=== PATIENT | female | born 1970 | race Caucasian/White ===

== ENCOUNTER → 2017-12-10 13:46 | Outpatient (POV) | payer BC, SELFPAY | PROVIDERS: Family Provider Internal Medicine Adolescent Medicine; PCP Internal Medicine Adolescent Medicine; Visit Provider Dermatology | DX: Z00.00 Encounter for general adult medical examination without abnormal findings (principal) ==

== ENCOUNTER → 2018-05-14 15:39 | Outpatient (CLI) | payer BC, SELFPAY ==
--- NOTE | 2018-05-14 15:42 | MM_ITS ---
MM Dig screening mamm BI w/CAD ORDERING PHYSICIAN : Driss Buck MD PATIENT AGE: 48 years GENDER: Female COMPARISON: March 24, 2016 right mammogram & ultrasound... March, , June 2014, July 2011 bilateral mammograms also utilized INDICATION: ITS.REASON: Routine Screening Mammogram no hormones. No new complaints. Previous lumpectomy for benign fibroadenoma/ benign excisional biopsy right breast April 2016 Family history. Mother with breast cancer age 50 TECHNIQUE: Standard CC and MLO images were obtained. The axillary cc view both breast included R2 CAD reviewed. FINDINGS: Moderate breast density.. RIGHT BREAST.:Stable post surgical changes from lumpectomy with residual mild distortion towards upper outer quadrant right breast There are a few small punctate, loosely grouped calcifications right breast seen towards deep of the lumpectomy site,. These most likely/, appear to be benign calcifications, possibly post biopsy type calcifications. Given the recent biopsy and changes I believe follow-up 5-6 months would be most appropriate, & suggested to confirm relative stability of these most likely, benign developing calcifications,. The Asymmetric areas of fibroglandular tissue in the axillary tail right breast back on Mar 2016 mammogram studies are less evident today than in 2016-but may also benefit from short interval follow-up as well. LEFT BREAST:. 2 Small stable ovoid nodular densities axillary quadrant and tail left breast are again noted. Present and fairly stable since since 2011.-Most likely intramammary nodes Intramammary lymph nodes or. Follow-up in one year adequate on left IMPRESSION: RIGHT BREAST: 1. Postsurgical changes right breast from prior lumpectomy for benign fibroadenoma. 2. There are a few small most likely benign-appearing calcifications deep margin of the biopsy site.. Possibly postbiopsy calcifications.\ Would suggest 5-6 month follow-up to further evaluate these most likely benign calcifications LEFT BREAST: No significant new findings. Follow-up in one year BI-RADS Category: 3 Probably Benign Finding Short Term Follow-up RECOMMENDED FOLLOW-UP: 6M 6 MONTH FOLLOW-UP Right breast 6 months (A letter has been sent to the patient regarding results of the study.)
== END ==
PROVIDERS: PCP Internal Medicine Adolescent Medicine; Visit Provider Nurse Practitioner Obstetrics & Gynecology
DX: Z12.31 Encounter for screening mammogram for malignant neoplasm of breast (principal)
CPT/HCPCS: 77067

== ENCOUNTER → 2018-06-09 14:34 | Outpatient (CLI) | payer BC, SELFPAY ==
--- NOTE | 2018-06-09 14:35 | MM_ITS ---
MM Dig mamm DX unilat RT CAD INDICATION: Follow-up calcifications ORDERING PHYSICIAN: Driss Buck MD PATIENT AGE: 48 years COMPARISON: None TECHNIQUE: Mag views right breast FINDINGS: Cluster of calcifications noted in the upper outer right breast which have a probably benign appearance being mostly coarse with a few small punctate calcifications.. Surgical clips are present anterior to the calcifications IMPRESSION: Probably benign calcifications BI-RADS Category: 3 Probably Benign Finding Short Term Follow-up RECOMMENDED FOLLOW-UP: 6M - 6 MONTH FOLLOW-UP (A letter has been sent to the patient regarding results of the study.)
== END ==
PROVIDERS: PCP Internal Medicine Adolescent Medicine; Visit Provider Nurse Practitioner Obstetrics & Gynecology
DX: R92.8 Other abnormal and inconclusive findings on diagnostic imaging of breast (principal)
CPT/HCPCS: 77065

== ENCOUNTER → 2018-12-09 13:28 | Outpatient (CLI) | payer BC, SELFPAY ==
--- NOTE | 2018-12-09 13:33 | MM_ITS ---
MM Dig mamm DX unilat RT CAD INDICATION: 6 month follow-up ORDERING PHYSICIAN: Driss Buck MD PATIENT AGE: 48 years COMPARISON: 06/09/2018, 05/14/2018, 05/01/2017 TECHNIQUE: Standard images performed along with spot compression mag views FINDINGS: Postsurgical changes of the right breast with surgical clips in the upper outer aspect with some scarring at this area. There remains a small cluster of calcifications in the superior aspect of the right breast laterally. These appear benign and are unchanged. No new abnormalities are evident. IMPRESSION: No change postsurgical changes and benign-appearing calcifications in the upper outer aspect of the right breast. No evidence of malignancy. Suggest reason screening mammogram in May 2019 of both breasts BI-RADS Category: 2 Benign Finding(s) RECOMMENDED FOLLOW-UP: 6M - 6 MONTH FOLLOW-UP (A letter has been sent to the patient regarding results of the study.)
== END ==
PROVIDERS: PCP Internal Medicine Adolescent Medicine; Visit Provider Nurse Practitioner Obstetrics & Gynecology
DX: R92.8 Other abnormal and inconclusive findings on diagnostic imaging of breast (principal)
CPT/HCPCS: 77065

== ENCOUNTER → 2018-12-20 12:39 | Outpatient (CLI) | payer BC, SELFPAY ==
--- NOTE | 2018-12-20 | XR_ITS ---
XR hip RT 2-3V w/pelvis HISTORY: Pain ORDERING PHYSICIAN: Samm Silva MD PATIENT AGE: 48 years COMPARISON: None FINDINGS: No fracture or dislocation is evident. No significant degenerative change. No lytic or blastic change. Unremarkable soft tissues IMPRESSION: Negative hip
--- NOTE | 2018-12-20 | XR_ITS ---
XR knee RT 3V HISTORY: Pain ITS.REASON: ARTHRITIS ORDERING PHYSICIAN: Samm Silva MD PATIENT AGE: 48 years COMPARISON: None FINDINGS: Minimal osteoarthritic changes are present in the medial compartment and patellofemoral joint. No fracture or dislocation. No lytic or blastic change. IMPRESSION: Mild osteoarthritis
--- NOTE | 2018-12-20 | XR_ITS ---
XR chest 2V HISTORY: Arthritis ORDERING PHYSICIAN: Samm Silva MD PATIENT AGE: 48 years COMPARISON: None FINDINGS: The cardiomediastinal silhouette and pulmonary vascularity are within normal limits. The lungs are clear without infiltrates, suspicious nodules, or pleural effusions. Calcified node is present in the left hilum No acute bony abnormalities. IMPRESSION: Negative chest, no acute finding
--- NOTE | 2018-12-20 | XR_ITS ---
XR knee LT 3V HISTORY: Pain ITS.REASON: ARTHRITIS INVOLVING MULTIPLE SITES ORDERING PHYSICIAN: Samm Silva MD PATIENT AGE: 48 years COMPARISON: None FINDINGS: No fracture or dislocation. No lytic or blastic change. Normal mineralization. No significant arthritic changes evident. No other significant findings IMPRESSION: Negative Knee
--- NOTE | 2018-12-20 | XR_ITS ---
XR hip LT 2-3V w/pelvis HISTORY: Pain ORDERING PHYSICIAN: Samm Silva MD PATIENT AGE: 48 years COMPARISON: None FINDINGS: No fracture or dislocation is evident. No significant degenerative change. No lytic or blastic change. Unremarkable soft tissues IMPRESSION: Negative hip
== END ==
PROVIDERS: PCP Internal Medicine Adolescent Medicine; Visit Provider Internal Medicine Adolescent Medicine
DX: M12.9 Arthropathy, unspecified (principal); R05 Cough
CPT/HCPCS: 71046; 73502; 73562

== ENCOUNTER → 2019-06-16 14:09 | Outpatient (CLI) | payer BC, SELFPAY ==
--- NOTE | 2019-06-16 14:10 | MM_ITS ---
PROCEDURE: MM DIG MAMM BI DX W/CAD CLINICAL INDICATION: SCREENING LT BREAST, 6 MTH F/U RT BREAST There is a history of breast cancer patient's mother diagnosed at age 50. There has been previous biopsy right breast for benign disease. Patient has no current complaints. COMPARISON: [facility] MM Dig screening mamm BI w/CAD from 05/14/2018 DXRT MM Dig mamm DX unilat RT CAD from 06/09/2018 DIG MAMM-DX UNI-RT from 12/09/2018 TECHNIQUE: Standard CC and MLO images were obtained. R2 CAD reviewed. FINDINGS: Scattered fibroglandular densities are seen throughout both breasts. Again noted are the multiple surgical clips just above the nipple right breast. A couple of benign-appearing microcalcifications are seen just posterior to the surgical clips which were seen previously and they are stable. There is a stable benign-appearing small nodular density outer quadrant left breast. There is no suspicious lesion and no suspicious microcalcifications. IMPRESSION: Fibrofatty parenchyma with no suspicious lesions seen BI-RAD Category: 2 Benign Finding(s) FOLLOW-UP: 1YR 1 Year Follow-up (A letter has been sent to the patient regarding results of the study.) Dictated by: Dr. Kevin Munoz MD 06/23/2019 08:[address] Kevin Munoz MD in [place] 06/23/2019 08:36
== END ==
PROVIDERS: PCP Internal Medicine Adolescent Medicine; Visit Provider Nurse Practitioner Obstetrics & Gynecology
DX: R92.8 Other abnormal and inconclusive findings on diagnostic imaging of breast (principal)
CPT/HCPCS: 77066

== ENCOUNTER → 2020-06-19 15:53 | Outpatient (CLI) | payer BC, SELFPAY ==
--- NOTE | 2020-06-19 15:53 | MM_ITS ---
PROCEDURE: MM DIG SCREENING MAMM BI W/CAD Digital Breast Tomosynthesis Included CLINICAL INDICATION: screening xmg There is a history of breast cancer in the patient's mother diagnosed after menopause. There has been a previous biopsy right breast for benign disease. COMPARISON: MG [facility] MM Dig screening mamm BI w/CAD from 05/14/2018 MG DXRT MM Dig mamm DX unilat RT CAD from 06/09/2018 MG DIG MAMM-DX UNI-RT from 12/09/2018 MG MM DIG MAMM BI DX W/CAD from 06/16/2019 TECHNIQUE: Standard CC and MLO images and 3D Tomosynthesis was obtained. R2 CAD reviewed. FINDINGS: Scattered diffuse fibroglandular densities are seen throughout both breast. There are multiple surgical clips with minimal post biopsy scarring just deep to and superior to the nipple right breast. Or suspicious lesion in either breast and no suspicious microcalcifications. IMPRESSION: Fibrofatty parenchyma with no suspicious lesions seen BI-RAD Category: 2 Benign Finding(s) FOLLOW-UP: 1YR 1 Year Follow-up (A letter has been sent to the patient regarding results of the study.) Dictated by: Dr. Kevin Munoz MD 06/21/2020 13:51 Dr. Kevin Munoz MD in [place] 06/21/2020 13:51
== END ==
PROVIDERS: PCP Internal Medicine Adolescent Medicine; Visit Provider Nurse Practitioner Obstetrics & Gynecology
DX: Z12.31 Encounter for screening mammogram for malignant neoplasm of breast (principal)
CPT/HCPCS: 77063; 77067

== ENCOUNTER → 2021-07-09 16:17 | Outpatient (CLI) | payer BC, SELFPAY ==
--- NOTE | 2021-07-09 16:17 | MM_ITS ---
PROCEDURE INFORMATION: Exam: MG Bilateral Screening 3D Mammography Exam date and time: 07/09/2021 4:17 PM Age: 51 years old Clinical indication: Encounter for screening mammogram for malignant neoplasm of breast; Additional info: Screening xmg. Family history of breast carcinoma. TECHNIQUE: Imaging protocol: Bilateral screening tomosynthesis and 2D mammography including computer-aided detection (CAD) when performed. COMPARISON: 1. MG MM DIG SCREENING MAMM BI W/CAD 06/19/2020 3:57 PM 2. MG MM DIG MAMM BI DX W/CAD 06/16/2019 2:27 PM 3. MG DIG MAMM-DX UNI-RT 12/09/2018 1:52 PM FINDINGS: MAMMOGRAPHY: Breast composition: There are scattered areas of fibroglandular density. Mass: No suspicious masses. Architectural distortion: No suspicious distortion. Relatively stable postsurgical changes in the right upper outer quadrant. Calcifications: No suspicious calcifications. Asymmetric density: None. Skin thickening: None. Axillary adenopathy: None. IMPRESSION: No mammographic evidence of malignancy. Annual screening is recommended unless otherwise clinically indicated. ASSESSMENT: BI-RADS Category 2: Benign
== END ==
PROVIDERS: PCP Internal Medicine Adolescent Medicine; Visit Provider Nurse Practitioner Obstetrics & Gynecology
DX: Z12.31 Encounter for screening mammogram for malignant neoplasm of breast (principal)
CPT/HCPCS: 77063; 77067

== ENCOUNTER → 2021-09-17 14:58 | Outpatient (POV) | payer BC, SELFPAY | PROVIDERS: Visit Provider Dermatology | DX: Z00.00 Encounter for general adult medical examination without abnormal findings (principal) ==

== ENCOUNTER → 2022-01-23 08:55 | Outpatient (CLI) | payer BC, SELFPAY ==
--- NOTE | 2022-01-23 08:58 | XR_ITS ---
FINAL REPORT CLINICAL HISTORY: medial knee pain FINDINGS: RIGHT KNEE 4 views of the right knee were obtained. There is no acute fracture or dislocation. There is mild degenerative change which is worse at the patellofemoral joint. Visualized joint spaces are normally aligned. A small joint effusion is seen. IMPRESSION: Mild degenerative change. Small joint effusion with no acute bony abnormality. Reviewed, Interpreted and Dictated by Khanh Schaffer III, MD Transcribed by Tawnya Leal Authenticated and [facility]
== END ==
PROVIDERS: PCP Internal Medicine Adolescent Medicine; Visit Provider Orthopaedic Surgery
DX: M25.561 Pain in right knee (principal)
CPT/HCPCS: 73564

== ENCOUNTER → 2022-01-29 13:26 | Outpatient (CLI) | payer BC, SELFPAY ==
--- NOTE | 2022-01-29 13:26 | MR_ITS ---
PROCEDURE INFORMATION: Exam: MR Right Lower Extremity Joint Without Contrast, Knee Exam date and time: 01/29/2022 2:08 PM Age: 51 years old Clinical indication: Patient HX: Right knee pain, no known injury TECHNIQUE: Imaging protocol: Magnetic resonance imaging of the Right lower extremity joint without contrast. Exam focused on the knee. COMPARISON: 1. CR XR KNEE RT 4V 01/23/2022 8:59 AM 2. CR (KNEE AP, KNEE, KNEE AP) 12/20/2018 1:05 PM FINDINGS: Bones and cartilage: There is mild lateral subluxation of the patella. There is grade IV (out of IV) full-thickness cartilage loss involving a significant portion of the lateral patellofemoral joint, which may be due to severe primary osteoarthritis, patellar maltracking, or CPPD arthropathy. There is grade III (out of IV) high-grade partial-thickness cartilage loss involving the medial compartment. No significant cartilage damage involves the lateral compartment. There is no acute fracture or dislocation. No aggressive bone lesions are present. Joint spaces: A moderate joint effusion involves the knee. Periarticular cysts: A small popliteal cyst is present. Medial meniscus: A complex tear involves the posterior horn of the medial meniscus. Abnormal signal extends to both the superior and inferior meniscal surfaces. Lateral meniscus: The lateral meniscus shows no evidence of tear. Anterior cruciate ligament: The anterior cruciate ligament is intact. Posterior cruciate ligament: The posterior cruciate ligament is intact. Medial capsule and supporting structures: The medial collateral ligament is intact. Lateral capsule and supporting structures: The lateral collateral ligament complex is intact. Extensor mechanism of knee: The extensor mechanism is intact without significant tendinosis. Muscles: Unremarkable. Soft tissues: There is a moderate amount of edema in the subcutaneous fat. IMPRESSION: 1. Complex tear of the medial meniscus posterior horn. 2. Significant grade IV (out of IV) full-thickness cartilage loss involving the lateral patellofemoral joint, which may be due to severe primary osteoarthritis, patellar maltracking, or CPPD arthropathy. 3. Grade III (out of IV) high-grade partial-thickness cartilage loss involving the medial joint compartment, consistent with moderate primary osteoarthritis.
== END ==
PROVIDERS: PCP Internal Medicine Adolescent Medicine; Visit Provider Orthopaedic Surgery
DX: M25.561 Pain in right knee (principal); G89.29 Other chronic pain
CPT/HCPCS: 73721

== ENCOUNTER → 2022-03-11 15:29 | Outpatient (CLI) | payer BC, SELFPAY ==
--- NOTE | 2022-03-11 15:47 | ECG_ITS ---
APPROVED REPORT Exam: Resting ECG HR:66 bpm ECG Measurements Heart Rate 66 AXES MS 155 P 57 QRSd 85 QRS 113 QT 400 T 37 QTc 413 Conclusion SINUS RHYTHM POSSIBLE RIGHT VENTRICULAR HYPERTROPHY [SOME/ALL OF: PROMINENT R IN V1, LATE TRANSITION, RAD, MESFIN, SSS] ABNORMAL ECG UNCONFIRMED REPORT Electronically signed by : Samm Silva MD 03/11/2022 21:06:42
[2022-03-11 15:50] LABS: Microscopic, Urine URINE MICROSCOPIC (MICROSCOPIC)
--- NOTE | 2022-03-11 16:09 | XR_ITS ---
FINAL REPORT CLINICAL HISTORY: pre op; SOB COMPARISON: 12/20/2018 FINDINGS: TWO-VIEW CHEST The heart size is normal. The mediastinum is normal. There is small left pleural effusion or pleural thickening. There is no pneumothorax. IMPRESSION: Small left pleural effusion versus pleural thickening. Reviewed, Interpreted and Dictated by Khanh Schaffer III, MD Transcribed by Zoey Odom Authenticated and . [facility]
[2022-03-11 16:51] LABS: Basophils # 0.1 K/mm3 (0-0.2); Basophils % 1.4 % (0.1-2.0); Eosinophils # 0.1 K/mm3 (0.0-0.4); Eosinophils % 1.9 % (0.1-12.0); Hematocrit 41.8 % (37.0-47.0); Hemoglobin 13.2 g/dL (12.2-16.2); Lymphocytes # 2.7 K/mm3 (0.7-4.5); Lymphocytes % 36.5 % (10-50); Mean Corpuscular HGB Conc 31.5 g/dL (31.8-35.4); Mean Corpuscular Hemoglobin 28.6 pg (27.0-31.2); Mean Corpuscular Volume 90.7 fl (81-99); Mean Platelet Volume 8.8 fl (7.4-10.4); Monocytes # 0.4 K/mm3 (0.1-1.0); Monocytes % 5.8 % (1.7-9.3); Neutrophils % 54.3 % (37.0-80.0); Platelet Count 283 K/mm3 (142-424); Red Blood Count 4.61 M/mm3 (4.20-5.40); Red Cell Distribution Width 14.6 % (11.5-17.5); White Blood Count 7.4 K/mm3 (4.8-10.8)
[2022-03-11 17:27] LABS: Alanine Aminotransferase 21 U/L (12-78); Albumin Level 3.9 g/dl (3.5-5.0); Albumin/Globulin Ratio 1.4 (1.1-1.8); Alkaline Phosphatase 132 U/L (38-126); Anion Gap 8.1 mEq/L (5-15); Aspartate Amino Transferase 26 U/L (14-36); Blood Urea Nitrogen 28 mg/dl (7-17); Calcium 9.5 mg/dl (8.4-10.2); Carbon Dioxide 30 mmol/L (22.0-30.0); Chloride 105 mmol/L (98-107); Estimated Glomerular Filt Rate 47 ml/min (>60); GFR (African American) 57 ML/MIN (>60); Globulin 2.8 g/dL (1.3-3.2); Glucose 95 mg/dl (74-100); Potassium 4.1 mmoL/L (3.5-5.1); Sodium 139 mmol/L (136-145); Total Protein,Serum 6.7 g/dl (6.3-8.2)
[2022-03-11 17:36] LABS: Bilirubin,Total < 0.1 mg/dl (0.2-1.3)
[2022-03-11 18:06] LABS: Appearance,Urine CLEAR (Clear); Bilirubin,Urine Negative (Negative); Blood, Urine Negative (Negative); Color,Urine YELLOW (Yellow); Glucose,Urine (UA) Negative (Negative); Ketones,Urine Negative (Negative); Leukocyte Esterase,Urine Negative (Negative); Nitrate,Urine Negative (Negative); Protein,Urine Negative (Negative); Specific Gravity, Urine >= 1.030 (1.005-1.030); Urobilinogen,Urine 0.2 EU/dl (0.2)
== END ==
PROVIDERS: PCP Internal Medicine Adolescent Medicine; Visit Provider Orthopaedic Surgery
DX: Z01.818 Encounter for other preprocedural examination (principal); M25.561 Pain in right knee
CPT/HCPCS: 36415; 71046; 80053; 81001; 85025; 93005

== ENCOUNTER → 2022-03-15 11:08 | Outpatient (CLI) | payer BC, SELFPAY | PROVIDERS: PCP Internal Medicine Adolescent Medicine; Visit Provider Orthopaedic Surgery | DX: Z01.812 Encounter for preprocedural laboratory examination (principal); Z20.822 Contact with and (suspected) exposure to COVID-19; M25.561 Pain in right knee | CPT/HCPCS: C9803; U0003; U0005 ==

== ENCOUNTER 2022-03-17 07:26 | Day surgery (SDC) | payer BC, SELFPAY ==
[2022-03-13 15:02] VITALS: BMI 35.7
[2022-03-17] VITALS (13 sets, daily range): BP systolic 129–152; BP diastolic 67–94; PULSE 59–78; RESP 16–96; TEMP 36.1–43; O2SAT 92–97
--- NOTE | 2022-03-17 08:43 | P.PN_ITS ---
[facility] Medical History Anxiety Depression History of cyst of breast Hypertension Hyperthyroidism Migraine Surgical History History of colonoscopy History of laparoscopy History of wisdom tooth extraction Family History Other No significant family history Social History Smoking Status: Never smoker alcohol intake: never substance use type: denies use current occupational status: employed Travel in the last 8 weeks: None household members: family housing: house caffeine: Yes [facility] Anesthesia Checklist Patient Identification Patient Identification: Arm Band and Verbal (Name & ) Structural Data Admitted From: Home Planned Operative Procedure/s: l knee arthro Consent for Planned Operative Procedure(s) Verified: Yes Verified Documents: Surgical Consent Additional verifications Anesthesia Reactions: No Hx Blood Transfusions: No Blood Transfusion Reaction: No Airway Assessment C-Spine Mobility Assessed: Yes TMJ Mobility Assessed: Yes Dentition: Good Dentition Neurological Assessment Level of Consciousness: Awake, Alert and Appropriate Psychosocial Assessment Concerns Regarding Surgery: nausea Anesthesia Plan Anesthesia Risk discussed: Yes Anesthesia Plan: Verified ASA Class: II Anesthesia Type: General
--- NOTE | 2022-03-17 11:22 | P.PNANES_ITS ---
[facility] Anesthesia Record Part I Anesthesia Record I Intake, IV Amount: 1,200 Estimated blood loss (mL): 5 Urine output (mL): 0 Blood Products used (#): none Blood Pressure: 150/86 SaO2: 92 Pulse Rate: 67 Respiratory Rate: 16 Temperature: 97.1 F Patient is:: Drowsy and Stable Stable to PACU at:: 11:15
--- NOTE | 2022-03-17 11:50 | EXP.OP.NOTE ---
Date of procedure: 03/17/22 Pre-op Diagnosis:: 1. Medial meniscus tear, right knee 2. Osteoarthritis, right knee Post-op Diagnosis:: 1. Degenerative tear, Medial meniscus, right knee 2. Osteoarthritis, right knee 3. Pathological medial plica, right knee Procedure performed:: 1. Examination of right knee under anesthesia 2. Partial medial meniscectomy, right knee 3. Chondroplasty, right knee 4. Resection of medial plica, right knee Surgeon:: Jeancarlos Denney MD Consulting Project Director(s):: Katherine Monson PA-C TEAROOM HOST:: Willam Macias Anesthesia: LMA Estimated blood loss (mL): 2 Clinical Note:: The patient is a 52-year-old female with chronic right knee pain which is unresponsive to conservative management and evidence of a medial meniscal tear and significant arthritic changes on imaging. Clinically her symptoms are consistent with the above diagnosis. Resection of the torn medial meniscus, chondroplasty and debridement is indicated to relieve the pain and improve function of the knee. Please refer to orthopedic office note for full details. Operative findings:: Examination of the RIGHT knee under anesthesia, showed a stable knee joint. ?There is a small amount of knee joint effusion.? Knee range of motion is from 0-130? of flexion.? Arthroscopic findings include diffuse grade 2-4 degenerative changes over the patellofemoral compartment and grade 2- 3 changes over the medial femoral condyle and the medial tibial plateau. ?The lateral compartment is well preserved.? The medial meniscus had a degenerative tear involving the posterior horn. The lateral meniscus was noted to be intact.? The medial plica was inflamed and thickened.? The anterior cruciate ligament and posterior cruciate ligaments were intact. ?Mild synovitis was noted. Operative note:: On the day of the procedure the patient and her were met in the preoperative area and positively identified. A physical examination was performed and documented. The limb was marked and initialed by me. I have again discussed the diagnosis, management options including both nonsurgical and surgical. I have discussed the proposed surgical procedure, risks and benefits and alternatives in detail. The complications discussed include but are not limited to infection, injury to nerves and blood vessels, injury to the ligaments and tendons, knee stiffness, arthrofibrosis, incomplete relief, incomplete functional recovery, DVT, PE, CRPS, complications related to anesthesia including heart attack, stroke and even . I have also discussed about the likely need for further surgery in future. I told her that there were no guarantees with surgery; she could be no better or even worse. We also discussed the postoperative recovery and rehabilitation that might be needed. I believe the patient to be well informed with regard to the proposed surgery. I told her that it would take few months for full recovery of the knee after surgery. ?She expressed a full understanding and wished to proceed with the planned surgery. Patient understood the risks, agreed to proceed with surgery and no guarantees or assurances were given or implied. Patient was brought to the operating room and placed supine on the operating table. All the bony prominences were appropriately padded. A general anesthesia was administered by the milking worker. A well-padded tourniquet cuff was placed over the right upper thigh. Examination of the right knee under anesthesia was performed. A small amount of knee effusion was noted. Knee range of motion was 0-1 30 degrees of flexion. Knee joint is noted to be ligamentously stable. The right knee was then prepped and draped in the usual sterile fashion. A preprocedure timeout was performed as per protocol. Administration of prophylactic IV antibiotics was confirmed with the anesthetic team. The arthroscopic portals were marked on the skin. The limb was exsanguinated with Esmarch bandage, and the tourniquet was inflated to 300 mmHg- see
--- NOTE | 2022-03-17 15:08 | EXP.ANES.II ---
[facility] Anesthesia Record Part II Anesthesia Record Part II Discharge Time: 12:05 Destination: Surgical Day Care (OP Surgery) PACU nurse assessment reviewed?: Yes Patient Condition:: Good Anesthesia Complications:: None Swallowing reflex intact?: Yes Cyanosis?: No Blood Pressure: 136/67 Pulse Rate: 62 Temperature: 97 F Mental Status: Alert & Oriented Pain level:: 0 Nausea and/or vomitting:: Nauseated Intake, IV Amount: 0
== END 2022-03-17 12:40 | disposition home or self-care (01) ==
PROVIDERS: PCP Internal Medicine Adolescent Medicine; Visit Provider Orthopaedic Surgery
PROC: (CPT 29870; principal; 2022-03-17 09:00)
DX: M23.231 Derangement of other medial meniscus due to old tear or injury, right knee (principal); M17.11 Unilateral primary osteoarthritis, right knee; M67.52 Plica syndrome, left knee; M25.561 Pain in right knee; G89.29 Other chronic pain; I10 Essential (primary) hypertension; G43.909 Migraine, unspecified, not intractable, without status migrainosus; Z79.899 Other long term (current) drug therapy
CPT/HCPCS: 29881; 96374; J2405

== ENCOUNTER 2022-04-28 09:36 | Emergency (ER) | payer BC, SELFPAY ==
[2022-04-28 09:37] VITALS: BP 134/68; PULSE 89; RESP 21; TEMP 37.3; O2SAT 97; BMI 36.6
--- NOTE | 2022-04-28 10:33 | EXP.UTC ---
Discharge Plan Disposition Patient Disposition: Home, Self-Care Condition: Good Prescriptions Prescriptions: New azithromycin [Zithromax Z-Glenn] 250 mg tablet See Rx Instructions .ROUTE .COMPLEX 5 Days Qty: 6 0RF Rx Instructions: For 250 mg dose pack: take 500 mg today (day 1), then 250 mg for 4 days (days 2-5) benzonatate 100 mg capsule 100 mg PO TID PRN (Reason: cough) Qty: 30 0RF prednisone 10 mg tablet 10 mg PO BID 5 Days Qty: 10 0RF No Action hydrochlorothiazide 25 mg tablet 25 mg PO DAILY carvedilol 25 mg tablet 25 mg PO DAILY celecoxib 200 mg capsule 200 mg PO DAILY levothyroxine 175 mcg tablet 175 mcg PO POSTTR Label Comments: TAKE ONE TABLET BY MOUTH EVERY DAY ON an EMPTY stomach vilazodone 20 mg tablet 20 mg PO DAILY hydrocodone-acetaminophen 5-325 mg Tablet 1 tab PO Q6HP PRN (Reason: moderate to severe pain) Qty: 20 0RF Referrals Follow up/Referrals: Samm Silva MD [Primary Care Provider] - See instructions Activity Restrictions/Add. Instructions Additional Instructions/Restrictions: *Monitor Temp, Over the counter Motrin or Tylenol as directed/as needed Tylenol every 4 hours and Motrin every 6 hours (as long as your family doctor has told you that you can take it) for fever or pain. and straight to ER if unable to lower temp less than 101.0 after medication given *Warm salt water gargles may help to soothe the throat *Throat Lozenges? *Warm fluids like tea with honey may help to soothe the throat? *Sleep elevated *Humidifier/Vaporizer Take medication as prescribed Follow up IMMEDIATELY for new or worsening symptoms or no Noticeable improvement over the next 48-72 hours. 911 for difficulty breathing or swallowing Clinical Impressions Clinical Impression: Otitis media Instructions Patient Instructions: Middle Ear Infection, Cough Discharge ED Provider: Lisa Joseph [facility] General Stated complaint: Persistant cough, Covid+ 04/15 Mode of Arrival: Ambulatory Source of Information: Patient Limitations: No Limitations Time Seen by Provider: 04/28/22 10:34 Description of Symptoms (Recalled from Triage Doc. by RN): cough and congestion HEENT Symptoms (Recalled from RN notes): Yes Resp Symptoms (Recalled from RN notes): Yes Skin Symptoms (Recalled from RN notes): No MS Symptoms (Recalled from RN notes): No Functional Status (Recalled from RN notes): n/a History of Present Illness Provider Complaint: Patient states that she had COVID on 04/15 States that she was feeling better from that and then started having hoarsness, cough, sore scratchy throat and pain and pressure in her left ear States that feels like it is stopped up and ringing at times but cough has not improved States that she isnt coughing anything up but is aggrivating her and keeping her upp Related Data Home Medications Medication Instructions Recorded Confirmed carvedilol 25 mg tablet 25 mg PO DAILY bp 06/04/20 04/02/22 celecoxib 200 mg capsule 200 mg PO DAILY Pain 06/04/20 04/02/22 hydrochlorothiazide 25 mg tablet 25 mg PO DAILY bp 06/04/20 04/02/22 levothyroxine 175 mcg tablet 175 mcg PO POSTTR thyroid 07/12/21 04/02/22 vilazodone 20 mg tablet 20 mg PO DAILY Anxiety 03/13/22 04/02/22 Previous Rx's Medication Instructions Recorded hydrocodone 5 mg-acetaminophen 325 1 tab PO Q6HP PRN moderate to 03/17/22 mg tablet severe pain #20 tabs azithromycin 250 mg tablet See Rx Instructions PO .COMPLEX 5 04/28/22 (Zithromax Z-Glenn) days #6 tabs benzonatate 100 mg capsule 100 mg PO TID PRN cough #30 caps 04/28/22 prednisone 10 mg tablet 10 mg PO BID 5 days #10 tabs 04/28/22 Allergies Allergy/AdvReac Type Severity Reaction Status Date / Time Penicillins [PENICILLINS] Allergy Unknown I-HIVES Verified 04/02/22 09:43 Worker's Comp Is this a Worker's Comp case?: No [facility] Medical History (Reviewed 04/02/22 @ 09:44 by Manuel
[2022-04-28 11:00] VITALS: BP 134/86; PULSE 89; RESP 21; TEMP 37.6; O2SAT 97
== END 2022-04-28 11:01 | disposition home or self-care (01) ==
PROVIDERS: Emergency Provider Nurse Practitioner; PCP Internal Medicine Adolescent Medicine
DX: U07.1 COVID-19 (principal); J02.9 Acute pharyngitis, unspecified; R05.9 Cough, unspecified; H92.02 Otalgia, left ear; I10 Essential (primary) hypertension; E03.9 Hypothyroidism, unspecified; H93.19 Tinnitus, unspecified ear; G43.909 Migraine, unspecified, not intractable, without status migrainosus; F32.A Depression, unspecified; F41.9 Anxiety disorder, unspecified; Z79.52 Long term (current) use of systemic steroids; Z79.899 Other long term (current) drug therapy; Z88.0 Allergy status to penicillin
CPT/HCPCS: 99213; G0463

== ENCOUNTER → 2022-07-24 07:48 | Outpatient (CLI) | payer BC, SELFPAY ==
--- NOTE | 2022-07-24 07:49 | MM_ITS ---
PROCEDURE INFORMATION: Exam: MG Bilateral Screening 3D Mammography Exam date and time: 07/24/2022 7:57 AM Age: 52 years old Clinical indication: Screening. History of benign right excisional biopsy. Her mother had breast cancer at age 50. TECHNIQUE: Imaging protocol: Bilateral Screening tomosynthesis and 2D mammography including computer-aided detection (CAD) when performed. COMPARISON: 1. MG MM DIG SCREENING MAMM BI W/CAD 07/09/2021 4:31 PM 2. MG MM DIG SCREENING MAMM BI W/CAD 06/19/2020 3:57 PM 3. MG MM DIG MAMM BI DX W/CAD 06/16/2019 2:27 PM 4. MG DIG MAMM-DX UNI-RT 12/09/2018 1:52 PM FINDINGS: MAMMOGRAPHY: Breast composition: There are scattered areas of fibroglandular density. Mass: No suspicious mass. Architectural distortion: Stable post surgical clips in changes in the right upper outer quadrant. Calcifications: No suspicious calcifications. Asymmetric density: None. Skin thickening: None. Axillary adenopathy: None. IMPRESSION: No mammographic evidence of malignancy. Annual screening is recommended unless otherwise clinically indicated. ASSESSMENT: BI-RADS Category 2: Benign
== END ==
PROVIDERS: PCP Internal Medicine Adolescent Medicine; Visit Provider Nurse Practitioner Obstetrics & Gynecology
DX: Z12.31 Encounter for screening mammogram for malignant neoplasm of breast (principal)
CPT/HCPCS: 77063; 77067

== ENCOUNTER 2023-06-15 15:35 | Emergency (ER) | payer BC, SELFPAY ==
[2023-06-15 16:00] VITALS: BP 153/86; PULSE 107; RESP 18; TEMP 38.2; O2SAT 97; BMI 34.1
--- NOTE | 2023-06-15 16:17 | EXP.UTC ---
Discharge Plan Disposition Patient Disposition: Home, Self-Care Condition: Good Prescriptions Prescriptions: New promethazine-DM 6.25-15 mg/5 mL Syrup 5 ml PO Q6H PRN (Reason: Cough) Qty: 240 0RF oseltamivir [Tamiflu] 75 mg capsule 75 mg PO BID Qty: 10 0RF ondansetron 4 mg Tablet,Disintegrating 4 mg PO Q8H PRN (Reason: Nausea) Qty: 12 0RF No Action hydrochlorothiazide 25 mg tablet 25 mg PO DAILY carvedilol 25 mg tablet 25 mg PO DAILY bupropion HCl 300 mg tablet extended release 24 hr 300 mg PO DAILY levothyroxine 175 mcg tablet 175 mcg PO POSTTR Patient Comments: TAKE ONE TABLET BY MOUTH EVERY DAY ON an EMPTY stomach Referrals Follow up/Referrals: Samm Silva MD [Primary Care Provider] - See instructions Activity Restrictions/Add. Instructions Additional Instructions/Restrictions: Drink plenty of fluids. Take tylenol or ibuprofen for pain or fever. Take the medications as directed. Follow up with your regular doctor. GO TO THE ER FOR ANY WORSENING SYMPTOMS Clinical Impressions Clinical Impression: Acute viral syndrome, Exposure to influenza Stand Alone Forms Stand Alone Forms: Work/School Release Instructions Patient Instructions: DI for Influenza -- Adult, Oseltamivir Discharge ED Provider: Allan Leslie [facility] General Stated complaint: cough nausea flu exposure Time Seen by Provider: 06/15/23 16:17 History of Present Illness Provider Complaint: She states that since yesterday she has had fever, chills, body aches, cough, chest congestion, and nausea. Her daughter that lives with her tested positive for influenza A yesterday. She denies any shortness of breath. Related Data Home Medications Medication Instructions Recorded Confirmed carvedilol 25 mg tablet 25 mg PO DAILY bp 06/04/20 06/15/23 hydrochlorothiazide 25 mg tablet 25 mg PO DAILY bp 06/04/20 06/15/23 levothyroxine 175 mcg tablet 175 mcg PO POSTTR thyroid 07/12/21 06/15/23 bupropion HCl 300 mg 24 hr tablet, 300 mg PO DAILY 08/06/22 06/15/23 extended release Previous Rx's Medication Instructions Recorded ondansetron 4 mg disintegrating 4 mg PO Q8H PRN Nausea #12 tabs 06/15/23 tablet oseltamivir 75 mg capsule (Tamiflu) 75 mg PO BID #10 caps 06/15/23 promethazine-DM 6.25 mg-15 mg/5 mL 5 ml PO Q6H PRN Cough #240 mL 06/15/23 oral syrup Allergies Allergy/AdvReac Type Severity Reaction Status Date / Time Penicillins [PENICILLINS] Allergy Unknown I-HIVES Verified 06/15/23 16:27 [facility] Disclaimer: The information contained in this section may have been updated after the patient was seen, as this information can be updated by other users. Medical History Anxiety Depression History of cyst of breast Hypertension Hyperthyroidism Migraine Torn meniscus Surgical History History of colonoscopy History of laparoscopy History of wisdom tooth extraction Family History Other No significant family history Social History Smoking Status: Never smoker alcohol intake: never substance use type: denies use current occupational status: employed Travel in the last 8 weeks: None household members: family housing: house caffeine: Yes ROS Obtained: Yes All systems reviewed & no additional complaints except as documented Constitutional Constitutional: Reports chills and Reports fever(s) Eyes Eyes: Denies eye discharge ENT Ears, Nose, Mouth, and Throat: Reports as per HPI Cardiovascular Cardiovascular: Denies chest pain Respiratory Respiratory: Denies chest congestion and Reports cough Gastrointestinal Gastrointestingal: Reports nausea; Denies abdominal pain, constipation, cramping, diarrhea or vomiting Musculoskeletal
[2023-06-15 16:25] LABS: UTC Influenza A Antigen Negative (Negative)
[2023-06-15 16:26] LABS: UTC Influenza B Antigen Negative (Negative)
[2023-06-15 17:01] VITALS: BP 153/86; PULSE 107; RESP 18; TEMP 38.2; O2SAT 97
== END 2023-06-15 17:01 | disposition home or self-care (01) ==
PROVIDERS: Emergency Provider Nurse Practitioner Family; PCP Internal Medicine Adolescent Medicine
DX: R05.9 Cough, unspecified (principal); R11.0 Nausea; R50.9 Fever, unspecified; R09.89 Other specified symptoms and signs involving the circulatory and respiratory systems; I10 Essential (primary) hypertension; E78.5 Hyperlipidemia, unspecified; Z20.828 Contact with and (suspected) exposure to other viral communicable diseases
CPT/HCPCS: 87635; 87804; 99212; 99214; G0463

== ENCOUNTER 2023-07-14 09:03 | Outpatient (CLI) | payer BC, SELFPAY ==
--- NOTE | 2023-07-14 09:10 | XR_ITS ---
FINAL REPORT TECHNIQUE: Left hip 3 views CLINICAL HISTORY: LEFT HIP PAIN COMPARISON: None FINDINGS: LEFT HIP: No evidence of acute fracture or dislocation is seen. There is mild degenerative change identified. IMPRESSION: Mild degenerative change without evidence of acute bony abnormality. Reviewed, Interpreted and Dictated by Khanh Schaffer III, MD Transcribed by Zuly Campa Authenticated and [facility]
== END 2023-07-14 23:59 ==
LOC: RAD 09:04
PROVIDERS: PCP Internal Medicine Adolescent Medicine; Visit Provider Nurse Practitioner Family
DX: M25.552 Pain in left hip (principal)
CPT/HCPCS: 73502

== ENCOUNTER 2023-08-03 15:12 | Outpatient (CLI) | payer BC, SELFPAY ==
--- NOTE | 2023-08-03 15:12 | MM_ITS ---
PROCEDURE INFORMATION: Exam: MG Bilateral Screening 3D Mammography Exam date and time: 08/03/2023 3:10 PM Age: 53 years old Clinical indication: Screening examination; Positive family history of breast cancer: Mother. History of benign right breast excision TECHNIQUE: Imaging protocol: Bilateral Screening tomosynthesis and 2D mammography including computer-aided detection (CAD) when performed. COMPARISON: 1. MG MM DIG SCREENING MAMM BI W/CAD 07/24/2022 7:57 AM 2. MG MM DIG SCREENING MAMM BI W/CAD 07/09/2021 4:31 PM FINDINGS: MAMMOGRAPHY: Breast composition: There are scattered areas of fibroglandular density. Mass: None. Architectural distortion: No new or suspicious distortion Calcifications: No suspicious calcifications. Asymmetric density: None. Skin thickening: None. Axillary adenopathy: None. IMPRESSION: No mammographic evidence of malignancy. Annual screening is recommended unless otherwise clinically indicated. ASSESSMENT: BI-RADS Category 1: Negative
== END 2023-08-03 23:59 ==
LOC: RAD 15:12
PROVIDERS: PCP Internal Medicine Adolescent Medicine; Visit Provider Nurse Practitioner Obstetrics & Gynecology
DX: Z12.31 Encounter for screening mammogram for malignant neoplasm of breast (principal)
CPT/HCPCS: 77063; 77067

== ENCOUNTER 2024-08-23 15:44 | Outpatient (CLI) | payer BC, SELFPAY ==
--- NOTE | 2024-08-23 15:45 | MM_ITS ---
PROCEDURE INFORMATION: Exam: MG Bilateral Screening 3D Mammography Exam date and time: 08/23/2024 3:48 PM Age: 54 years old Clinical indication: Screening mammogram TECHNIQUE: Imaging protocol: Bilateral Screening tomosynthesis and 2D mammography including computer-aided detection (CAD) when performed. COMPARISON: 1. MG MM DIG SCREENING MAMM BI W/CAD 08/03/2023 3:10 PM 2. MG MM DIG SCREENING MAMM BI W/CAD 07/24/2022 7:57 AM 3. MG MM DIG SCREENING MAMM BI W/CAD 07/09/2021 4:31 PM 4. MG MM DIG SCREENING MAMM BI W/CAD 06/19/2020 3:57 PM FINDINGS: MAMMOGRAPHY: Breast composition: There are scattered areas of fibroglandular density. Mass: None. Architectural distortion: No new or suspicious architectural distortion. Calcifications: No new or suspicious calcifications are present Asymmetric density: No new or suspicious asymmetric density is present Skin thickening: None. Axillary adenopathy: None. IMPRESSION: No mammographic evidence of malignancy. Recommend annual screening mammography unless otherwise clinically indicated. ASSESSMENT: BI-RADS category 1: Negative.
== END 2024-08-23 23:59 | disposition home or self-care (01) ==
LOC: RAD 15:45
PROVIDERS: PCP Internal Medicine Adolescent Medicine; Visit Provider Nurse Practitioner Obstetrics & Gynecology
DX: Z12.31 Encounter for screening mammogram for malignant neoplasm of breast (principal)
CPT/HCPCS: 77063; 77067

== ENCOUNTER 2025-02-14 08:55 | Outpatient (CLI) | payer BC, SELFPAY ==
--- OUTSIDE RECORDS SUMMARY | 2024-12-13 05:15 | XMS_ITS ---
Author Organization [facility] Address [address] [place], [place] [address] Care Team Providers Care Delicatessen Slicer Name Role Phone Samm Silva Primary Care Provider [phone] Meryl Luu Unavailable [phone] REASON FOR VISIT Labs and F/U Encounters Encounter Location Date Provider Diagnosis [facility] [address] [place], [place] [address] 12/13/2024 Meryl Luu Plan Of Treatment No Information Progress Notes * Amada DIALLO LDOB: 8 (54 yo F)Acc No.[id number]:12/13/2024 Progress Notes Patient: Amada LUCIO Provider: ENEIDA Delgado :1970 A ge:54 Y S ex:Female Date:12/13/2024 Address:[address], [place], [id number] Pcp:Samm Silva Subjective: * Chief Complaints: * 1 . Labs and F/U. * Medical History: Objective: * Vitals: Assessment: Plan: * Treatment: * * Electronic signature of Penny Luu APRN on 02/14/2025 at 08:58 AM EDT Sign off status: Pending * Provider: ENEIDA Delgado Date: 0 12/13/2024 Generated for Printi ng/[place]/eTransmitting on: 0 02/14/2025 08:58 AM EDT
--- OUTSIDE RECORDS SUMMARY | 2025-02-06 05:30 | XMS_ITS ---
Author Organization [facility] Address [address] [place], [place] [address] Care Team Providers Care Dry Press Operator Helper Name Role Phone Samm Silva Primary Care Provider Meryl Luu Unavailable [phone] REASON FOR VISIT med check Encounters Encounter Location Date Provider Diagnosis [facility] [address] [place], [place] [address] 02/06/2025 Meryl Luu Plan Of Treatment No Information Progress Notes * Amada DIALLO LDOB: 8 (54 yo F)Acc No.[id number]:02/06/2025 Progress Notes Patient: Amada LUCIO Provider: ENEIDA Delgado :1970 A ge:54 Y S ex:Female Date:02/06/2025 Address:[address], [place], [id number] Pcp:Samm Silva Subjective: * Chief Complaints: * 1 . Med check. * Medical History: Objective: * Vitals: Assessment: Plan: * Treatment: * * Electronic signature of Penny Luu APRN on 02/14/2025 at 08:58 AM EDT Sign off status: Pending * Provider: ENEIDA Delgado Date: 0 02/06/2025 Generated for Lyle brewer/[place]/eTransmitting on: 0 02/14/2025 08:58 AM EDT
--- OUTSIDE RECORDS SUMMARY | 2025-02-14 08:58 | XMS_ITS | Clinical Summary ---
Author Organization Healthcare Address [address] [place] [address] Care Team Providers Care Insurance Claim Approver Name Role Phone Samm Silva MD Primary Care Provider [phone] Family History Medical History Relation Name Comments Asthma Father Breast cancer Mother Hypertension Mother Thyroid disease Other Relation Name Status Comments Father Mother Other Social History Tobacco Use Types Packs/Day Years Used Date Smoking Tobacco: Never Alcohol Use Standard Drinks/Week Comments Yes 0 (1 standard drink = 0.6 oz pur e alcohol) Comments Unknown Sex and Gender Information Value Date Recorded Sex Assigned at Not on file Legal Sex Female 8:07 PM EDT Gender Identity Not on file Sexual Orientation Not on file Last Filed Vital Signs Vital Sign Reading Time Taken Comments Blood Pressure - - Pulse - - Temperature - - Respiratory Rate - - Oxygen Saturation - - Inhaled Oxygen Concentration - - Weight 81.8 kg (180 lb 6.4 oz) 02/18/2013 9:18 A M EDT Height 165.1 cm (5' 5 ) 08/27/2012 8:46 AM EST Body Mass Index 30.02 08/27/2012 8:46 AM EST Plan of Treatment Not on file Care Teams Insurance Claim Approver Relationship Specialty Start Date End Date Samm Silva MD [address] [place] [address] PCP - General 11/16/20
--- OUTSIDE RECORDS SUMMARY | 2025-02-14 08:58 | XMS_ITS | Patient Health Record ---
Author Organization [facility] Address [address] [place] [address] Care Team Providers Care Open Hearth Stockyard Supervisor Name Role Phone Samm Silva Primary Care Provider Meryl Luu Unavailable [phone] Migration, Provider Unavailable Unavailable Allergies Allergen (clinical drug ingredient) Drug/Non Drug Allergy documented on EMR Reaction Allergy Type Onset Date Status DRIXORAL (uncoded) Unknown Allergy A ctive PCN (uncoded) Unknown Allergy Active Results Component Value Reference Range Notes TSH W/REFLEX TO FT4 (59219) Reviewed date:06/13/2024 08:17:08 AM Interpretation: Performing Lab:[facility] [place] SystemsOespAS[address] [place] Notes/Report: NON-FASTING; NON-FASTING; NON-FASTING; NON-FASTING; NON-FAST NON-FASTING; NON-FASTING; NON-FASTING; NON-FASTING; NON-FAST TSH W/REFLEX TO FT4 0.08 0.40-4.50 mIU/L T4, FREE 1.8 0.8-1.8 ng/dL VITAMIN B12 (927) Reviewed date:06/13/2024 08:17:07 AM Interpretation: Performing Lab:[facility] SystemsDcvoRS[address] [place] Notes/Report: NON-FASTING; NON-FASTING; NON-FASTING; NON-FASTING; NON-FAST VITAMIN B12 097 146-8720 pg/mL CBC (INCLUDES DIFF/PLT) (639 9) Reviewed date:06/13/2024 08:17:07 AM Interpretation: Performing Lab:[facility] [id number], [facility]wzjUT[address] [place] Notes/Report: NON-FASTING; NON-FASTING; NON-FASTING; NON-FASTING; NON-FAST WHITE BLOOD CELL COUNT 5.1 3.8-10.8 Thousand/ uL RED BLOOD CELL COUNT 4.87 3.80-5.10 Million/uL HEMOGLOBIN 13.5 11.7-15.5 g/dL HEMATOCRIT 41.5 35.0-45.0 % MCV 85.2 80.0-100.0 fL MCH 27.7 27.0-33.0 pg MCHC 32.5 32.0-36.0 g/dL For adults, a slight decrease in the calculated MCHC value (in the range of 30 to 32 g/dL) is most likely not clinically significant; however, it should be interpreted with caution in correlation with other red cell parameters and the patient's clinical condition. RDW 13.5 11.0-15.0 % PLATELET COUNT 222 140-400 Thousand/uL MPV 11.5 7.5-12.5 fL ABSOLUTE NEUTROPHILS 2555 5521-5525 cells/uL ABSOLUTE LYMPHOCYTES 8538 364-4492 cells/uL ABSOLUTE MONOCYTES 413 200-950 cells/uL ABSOLUTE EOSINOPHILS 148 15-500 cells/uL ABSOLUTE BASOPHILS 41 0-200 cells/uL NEUTROPHILS 50.1 LYMPHOCYTES 38.1 MONOCYTES 8.1 EOSINOPHILS 2.9 BASOPHILS 0.8 COMPREHENSIVE METABOLIC PANE (21901) Reviewed date:06/13/2024 08:17:07 AM Interpretation: Performing Lab:[facility] [id number] [employer] [facility], [facility]FmimOC[address] [place] Notes/Report: NON-FASTING; NON-FASTING; NON-FASTING; NON-FASTING; NON-FAST GLUCOSE 87 65-99 mg/dL Fasting reference interval UREA NITROGEN (BUN) 18 7-25 mg/dL CREATININE 1.10 0.50-1.03 mg/dL EGFR 59 > OR = 60 mL/min/1.73m2 BUN/CREATININE RATIO 16 6-22 (calc) SODIUM 141 135-146 mmol/L POTASSIUM 4.0 3.5-5.3 mmol/L CHLORIDE 105 98-110 mmol/L CARBON DIOXIDE 28 20-32 mmol/L CALCIUM 9.3 8.6-10.4 mg/dL PROTEIN, TOTAL 6.7 6.1-8.1 g/dL ALBUMIN 4.1 3.6-5.1 g/dL GLOBULIN 2.6 1.9-3.7 g/dL (calc) ALBUMIN/GLOBULIN RATIO 1.6 1.0-2.5 (calc) BILIRUBIN, TOTAL 0.4 0.2-1.2 mg/dL ALKALINE PHOSPHATASE 113 37-153 U/L AST 17 10-35 U/L ALT 18 6-29 U/L LIPID PANEL, STANDARD (7600) Reviewed date:06/13/2024 08:17:07 AM Interpretation: Performing Lab:[facility] [address], [facility]fgyWU[address] [place] Foster Notes/Report: NON-FASTING; NON-FASTING; NON-FASTING; NON-FASTING; NON-FAST CHOLESTEROL, TOTAL 198 <200 mg/dL HDL CHOLESTEROL 69 > OR = 50 mg/dL TRIGLYCERIDES 85 <150 mg/dL LDL-CHOLESTEROL 111 Reference range: <100 Desirable range <100 mg/dL for primary prevention; <70 mg/dL for patients with CHD or diabetic patients with > or = 2 CHD risk factors. LDL-C is now calculated using the Edvin-Joseph calculation, which is a validated novel method providing better accuracy than the Friedewald equation in the estimation of LDL-C. Edvin SS et al. CLAUDINE. 2013;310(19): 1414-3735 (http://education.[employer]/faq/SQB164) CHOL/HDLC RATIO 2.9 <5.0 (calc) NON HDL CHOLESTEROL 129 <130 mg/dL (calc) For patients with diabetes plus 1 major ASCVD risk factor, treating to a non-HDL-C goal of <100 mg/dL (LDL-C of <70 mg/dL) is considered a therapeutic option. Medications Medication SIG (Take, Route, Frequency, Duration) Notes Start Date End Date Status buPROPion HCl ER (XL) 150 MG 1 tab(s) or ally every 24 hours; Duration: 90 days Active Carvedilol 25 MG 1 tab(s) orally 2 times a day; Duration: 90 days Active hydroCHLOROthiazide 25 mg TAKE ONE TABLE T BY MOUTH EVERY DAY; Duration: 90 Active Citalopram Hydrobromide 10 mg TAKE ONE T ABLET BY MOUTH EVERY DAY; Duration: 90 Active Levothyroxine Sodium 150 mcg TAKE ONE TA BLET BY MOUTH EVERY DAY; Duration: 30 Active Problems Problem Type SNOMED Code ICD Code Onset Dates Problem Status W/U Status Risk Notes Problem Primary insomnia (6853081) Primary insomnia (F51.01) Active confirmed Problem Chronic serous otitis media (81829464) Chronic serous otitis media, left ear (H65.22) Active confirmed Problem Vitamin B12 deficiency (428051265) Vitamin B12 deficiency (E53.8) Active confirmed Problem Mixed anxiety and depressive disorder (923126823) Depression with anxiety (F41.8) Active confirmed Problem Hypothyroidism (58958125) Hypothyroidism (E03.9) Active confirmed Problem Essential hypertension (94359584) Hypertension, essential (I10) Active confirmed Problem Seasonal allergic conjunctivitis (590226180) Seasonal allergic conjunctivitis (H10.45) Active confirmed Problem Obese class II (794657827508720) BMI 39.0-39.9,adult (Z68.39) Active confirmed Problem Arthropathy (293216407) Arthritis involving multiple sites (M12.9) Active confirmed Problem Obesity (834811109) Non morbid obesity due to excess calories (E66.09) Active confirmed Problem Obese class II (240137463492978) BMI 37.0-37.9, adult (Z68.37) Active confirmed Problem Amenorrhea (17471013) Amenorrhea (N91.2) Active confirmed Problem Depressive disorder (41258443) Depressed affect (R45.89) Active confirmed Problem 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 crisis (675916901) Ophthalmic manifestation of Graves disease (E05.00) Active confirmed Problem Urinary incontinence (302606821) Urinary incontinence, unspecified type (R32) Active confirmed Problem Chronic kidney disease stage 3A (disorder) (344870904) CKD stage 3a, GFR 45-59 ml/min (N18.31) Active confirmed Vital Signs Heart Rate 74 /min 02/14/2025 Temperature 98.0 degrees Fahrenheit 02/14/2025 Blood pressure diastolic 70 mm Hg 02/14/2025 Height 5 ft 4 in in 02/14/2025 Blood pressure systolic 110 mm Hg 02/14/2025 Weight 208.2 lbs 02/14/2025 BMI 35.73 kg/m2 02/14/2025 Encounters Encounter Location Date Provider Diagnosis [facility] [address] [place] [facility] [address] [facility] [address] [place] [address] 10/08/2024 Provider Migration Hypertension, essential I10 and Depression with anxiety F41.8 [facility] [address] [place] [facility] [address] [facility] [address] [place] [address] 02/14/2025 Meryl Luu Vitamin B12 deficien cy E53.8 ; Hypothyroidism E03.9 ; Hypertension, essential I10 ; Depression with anxiety F41.8 ; CKD stage 3a, GFR 45-59 ml/min N18.31 ; Pain, joint, knee, right M25.561 and Limitation of joint motion of right knee M25.661 [facility] [address] [place] [facility] [address] [facility] [address] [place] [address] 06/09/2024 Merylsteve GarciaBell Vitamin B12 deficien cy E53.8 ; Hypothyroidism E03.9 ; Hypertension, essential I10 ; Depression with anxiety F41.8 and CKD stage 3a, GFR 45-59 ml/min N18.31 [facility] [address] [place] [facility] [address] [facility] [address] [place] [address] 06/13/2024 Merylsteve GarciaBell [facility] [address] [address] 01/30/2025 Samm Silva Assessments Encounter Date Diagnosis (ICD Code) Assessment Notes Treatment Notes Treatment Clinical Notes Section Notes 06/09/2024 Vitamin B12 deficiency (ICD-10 - E53.8) 06/09/2024 Hypothyroidism (ICD-10 - E03.9) monitoring labs today as noted 02/14/2025 Vitamin B12 deficiency (ICD-10 - E53.8) 02/14/2025 Hypothyroidism (ICD-10 - E03.9) monitoring labs today as noted 02/14/2025 Hypertension, essential (ICD-10 - I10) 06/09/2024 Hypertension, essential (ICD-10 - I10) 10/08/2024 Hypertension, essential (ICD-10 - I10) 06/09/2024 Depression with anxiety (ICD-10 - F41.8) hopefully lower dose wellbutrin and low dose SSRI with improve her irritability 10/08/2024 Depression with anxiety (ICD-10 - F41.8) 02/14/2025 Depression with anxiety (ICD-10 - F41.8) hopefully lower dose wellbutrin and low dose SSRI with improve her irritability 02/14/2025 CKD stage 3a, GFR 45-59 ml/min (ICD-10 - N18.31) continue efforts with better water intake, avoiding NSAIDS as possible 06/09/2024 CKD stage 3a, GFR 45-59 ml/min (ICD-10 - N18.31) continue efforts with better water intake, avoiding NSAIDS as possible 02/14/2025 Pain, joint, knee, right (ICD-10 - M25.561) 02/14/2025 Limitation of joint motion of right knee (ICD-10 - M25.661) Plan Of Treatment Pending Test Test Name Order Date X ray : Knee, Right 02/14/2025 H-THYROGLOBULIN AUTOANTIBODIES 2 C-ESTRADIOL 02/09/2020 C-CBC 06/13/2019 C-CBC 12/20/2018 C-CBC 08/22/2020 C-CBC 12/20/2014 C-CBC 12/18/2016 C-CBC 07/28/2018 C-CBC 10/29/2017 C-Sed Rate (ESR) 12/18/2016 C-Sed Rate (ESR) 12/20/2018 C-CMP 12/20/2018 C-CMP 06/13/2019 C-CMP 08/22/2020 C-CMP 12/18/2016 C-CMP 12/20/2014 C-CMP 10/29/2017 C-CMP 07/28/2018 C-LIPID PANEL 07/28/2018 C-LIPID PANEL 12/20/2014 C-LIPID PANEL 12/18/2016 C-LIPID PANEL 08/22/2020 C-LIPID PANEL 06/13/2019 C-TSH 06/13/2019 C-TSH 12/18/2016 C-TSH 04/27/2013 C-TSH 12/20/2014 C-TSH 08/17/2015 C-TSH 12/10/2015 C-TSH 03/07/2014 C-TSH 10/29/2017 C-FREE T4 06/13/2019 C-VITAMIN B12 06/13/2019 C-VITAMIN B12 12/20/2018 C-VITAMIN B12 07/28/2018 C-VITAMIN B12 12/20/2014 C-VITAMIN B12 03/07/2014 C-VITAMIN B12 08/17/2015 C-VITAMIN B12 12/18/2016 C-ARTHRITIS 12/20/2018 C-THYROID PROFILE 12/20/2018 C-THYROID PROFILE 08/22/2020 C-THYROID PROFILE 04/27/2013 C-THYROID PROFILE 07/28/2018 C-URINE CULTURE 06/24/2016 C-URINE CULTURE 07/29/2016 C-VITAMIN D, 25-HYDROXY 06/13/2019 C-VITAMIN D, 25-HYDROXY 03/07/2014 c-peripheral blood smear 10/29/2017 LIPID PANEL, STANDARD (7600) 02/14/2025 COMPREHENSIVE METABOLIC PANEL (44097) CBC (INCLUDES DIFF/PLT) (6399) VITAMIN B12 (927) 02/14/2025 TSH W/REFLEX TO FT4 (15561) 02/14/2025 Future Test Test Name Order Date C-TSH 12/07/2013 C-VITAMIN B12 12/07/2013 C-VITAMIN D, 25-HYDROXY 12/07/2013 C-CBC 06/10/2016 C-CMP 06/10/2016 C-VITAMIN B12 06/10/2016 C-THYROID PROFILE 06/10/2016 C-CBC 08/03/2017 C-CMP 08/03/2017 C-TSH 08/03/2017 C-VITAMIN B12 08/03/2017 Insurance Providers Payer Name Payer Address Payer Phone Subscriber Number Group Number Insured Name Patient Relationship to Insured Coverage Start Date Coverage End Date SKIP [facility] [address] [place] [address] [id number] Amada Diallo Self - patient is the insured Medications Administered Medication Instructions Date of Administration Dosage Notes Elsy 05/17/2013 1 Medical (General) History Medical History History ICD Code Grave's disease B12 Deficiency HTN Hpothyroidism PFO Depression with anxiety Normal Mammogram 07/27 Colonoscopy 2017, repeat 5 years due to family history of colon cancer Surgical History Surgery Date(Month/Year) Lumpectomy right breast 04/2016 colonoscopy 06/2018 orbital decompression surgery 08/2020 Right Meniscus Repair 03/2022
--- NOTE | 2025-02-14 09:00 | XR_ITS ---
FINAL REPORT TECHNIQUE: 4 views right knee CLINICAL HISTORY: LIMITED MOTION, PAIN COMPARISON: None FINDINGS: AP, lateral and oblique views of the right knee were obtained. There is no prior exam for comparison. There is no acute osseous abnormality of the right knee. Generative joint disease is identified. The soft tissues are normal. There is no joint effusion. IMPRESSION: Degenerative joint disease, with no acute osseous abnormality of the right knee. Reviewed, Interpreted and Dictated by Raegan Palacios MD Transcribed by Zuly Campa Authenticated and [facility]
== END 2025-02-14 23:59 | disposition home or self-care (01) ==
LOC: RAD 08:56
PROVIDERS: PCP Nurse Practitioner Family; Visit Provider Nurse Practitioner Family
DX: M17.11 Unilateral primary osteoarthritis, right knee (principal)
CPT/HCPCS: 73562